=== PATIENT | female | born 1995 | race Caucasian/White ===

== ENCOUNTER 2017-09-03 20:17 | Emergency (ER) | END 2017-09-03 22:39 | disposition home or self-care (01) ==

== ENCOUNTER 2019-04-02 18:51 | Emergency (ER) | payer BC, OTHER ==
[~2019-04-02] VITALS: Ht 152.4 cm; Wt 61.1 kg
[~2019-04-02 18:51] MED LIST: ACET500C5 PO; ALBU8.5H8 INH; CETI10CA PO; DOXY1TAB3 PO; GUAI473L22 PO; IBUP-1542 PO; MECL12.574 PO; METO10TA92 PO
[2019-04-02 18:58] VITALS: Ht 152.4 cm; Wt 61.1 kg
[2019-04-02 20:31] VITALS: BP 130/74; PULSE 79; RESP 16
--- NOTE | 2019-04-02 20:51 | ERD ---
ER Documentation Chief Complaint Chief Complaint vomiting x 1 day, states 10 weeks , denies vb HPI 24-year-old female currently 10 weeks presents for vomiting x1 day. She vomited 3 times. Patient is A0 she states that there is no blood or dark coloration noted. She took Zofran without relief. Denies vaginal bleeding. Denies dysuria. Denies fever. Denies chest pain or shortness of breath. Denies abdominal pain, nausea, vomiting. No other modifying factors noted, no other treatments tried at home. ROS All systems reviewed and are negative except as per history of present illness. Medications Home Meds Active Scripts Meclizine Hcl* (Antivert*) 12.5 Mg Tab, 12.5 MG PO Q8H PRN for nausea or vomiting, #30 TAB Prov:GINNY LEONE DO 04/02/19 Doxylamine/Pyridoxine Hcl (DICLEGIS DR 10-10 MG TABLET) 1 Each Tablet.dr, 1 TAB PO prn PRN for vomiting, #30 TAB take 2 tablets at bedtime on day 1 and 2 if that doesn't help, take 1 tablet in the morning and 2 tablets at bedtime on day 3 if vomiting does not get better on day 4, take 1 tablet in the morning, 1 tablet in the afternoon and 2 tablets at bedtime maximum 4 tablets per day Prov:GINNY LEONE DO 04/02/19 Guaifenesin-Codeine Phosphate* (Guaifenesin* AC Cough Syrup) 473 Ml Liquid, 5 ML PO Q4H PRN for COUGH, #120 ML Prov:BLAINE AKHTAR NP 09/03/17 Albuterol Sulfate* (Proair HFA*) 8.5 Gm Hfa.aer.ad, 2 PUFF INH Q4H PRN for WHEEZING AND SOB, #1 INHALER Prov:BLAINE AKHTAR NP 09/03/17 Ibuprofen* (Motrin*) 600 Mg Tab, 600 MG PO Q6H PRN for PAIN AND OR ELEVATED TEMP, #30 TAB Prov:BLAINE AKHTAR NP 09/03/17 Cetirizine Hcl* (Zyrtec*) 10 Mg Capsule, 10 MG PO DAILY, #30 TAB.CHEW Prov:BLAINE AKHTAR NP 09/03/17 Reported Medications [none] Unknown Strength No Conflict Check 09/03/17 Allergies Allergies: Coded Allergies: No Known Drug Allergy (Verified Allergy, Unknown, 09/03/17) PMhx/Soc Medical and Surgical Hx: pt denies Medical Hx, pt denies Surgical Hx Hx Alcohol Use: No Hx Substance Use: No Hx Tobacco Use: No Smoking Status: Never smoker FmHx Family History: No coronary disease Physical Exam Vitals Vital Signs Date Temp Pulse Resp B/P (MAP) Pulse Ox O2 O2 Flow FiO2 Time Delivery Rate 04/02/19 79 16 130/74 98 Room Air 20:31 (92) 04/02/19 99.1 106 20 142/71 96 18:58 (94) Physical Exam Const: No acute distress Head: Atraumatic Eyes: Normal Conjunctiva ENT: Normal External Ears, Nose and Mouth. Neck: Full range of motion. No meningismus. Resp: Clear to auscultation bilaterally Cardio: Regular rate and rhythm, no murmurs Abd: Soft, non tender, non distended. Normal bowel sounds Skin: No petechiae or rashes Back: No midline or flank tenderness Ext: No cyanosis, or edema Neur: Awake and alert Psych: Normal Mood and Affect Procedures/MDM Medical Decision Making: Differential diagnosis includes but not limited to SBO, hyperemesis gravidarum, electrolyte disorder, pancreatitis, appendicitis, gastritis, gastroenteritis. Patient appeared well on physical exam. Abdominal examination benign, there is low suspicion for acute abdomen. She likely has hyperemesis gravidarum Given mild symptoms it was felt the patient was appropriate for outpatient management. Patient advised to follow-up with [facility] INS[facility] 2 to 3 days. Prescription(s): Patient given prescription for supportive medication(s). Patient advised to follow up with PCP in 1-2 days. Patient advised to return to ED for new or worsening symptoms. Patient stable on discharge from the ED. Disclaimer: Inadvertent spelling and grammatical errors are likely due to EHR/dictation software use and do not reflect on the overall quality of patient care. Also, please note that the electronic time recorded on this note does not necessarily reflect the actual time of the patient encounter. Departure Diagnosis: Primary Impression: Hyperemesis arising during Condition: Fair Patient Instructions: Hyperemesis Gravidarum Referrals: [facility] YOU HAVE RECEIVED A MEDICAL SCREENING EXAM AND THE RESULTS INDICATE THAT YOU DO NOT HAVE A CONDITION THAT REQUIRES URGENT TREATMENT IN THE EMERGENCY DEPARTMENT. FURTHER EVALUATION AND TREATMENT OF YOUR CONDITION CAN WAIT UNTIL YOU ARE SEEN IN YOUR DOCTORS OFFICE WITHIN THE NEXT 1-2 DAYS. IT IS YOUR RESPONSIBILITY TO MAKE AN APPOINTMENT FOR FOLOW-UP CARE. IF YOU HAVE A PRIMARY DOCTOR --you should call your primary doctor and schedule an appointment IF YOU DO NOT HAVE A PRIMARY DOCTOR YOU CAN CALL OUR PHYSICIAN REFERRAL HOTLINE AT IF YOU CAN NOT AFFORD TO SEE A PHYSICIAN YOU CAN CHOSE FROM THE FOLLOWING [facility] [address] [facility]. [facility] [address] [facility] [facility] [address] [facility]. [facility] [address] [facility]. [facility] [address] [facility] [facility]. [address] Additional Instructions: Call your primary care doctor TOMORROW for an appointment during the next 1-2 days.See the doctor sooner or return here if your condition worsens before your appointment time. Follow up with [facility] GINNY LEONE DO Apr 02, 2019 20:51
== END 2019-04-02 21:17 | disposition home or self-care (01) ==
LOC: FTE 18:51
DX: O21.0 Mild hyperemesis gravidarum (principal); Z3A.10 10 weeks gestation of pregnancy
CPT/HCPCS: 99282

== ENCOUNTER 2019-04-23 20:11 | Emergency (ER) | payer BC ==
[~2019-04-23] VITALS: Ht 154.9 cm; Wt 60.0 kg
[2019-04-23 20:27] VITALS: BP 123/90; PULSE 109; RESP 18; Ht 154.9 cm; Wt 60.0 kg
[2019-04-23] MEDS ORDERED: ACETAMINOPHEN 500 MG TAB PO STA (22:14)
[2019-04-23] MEDS ORDERED: SOD CHLORIDE 0.9% 1,000 ML IV ONE (22:30)
[2019-04-23] MEDS ORDERED: METOCLOPRAMIDE 10 MG INJ IV ONE (22:30)
[2019-04-23] MEDS ORDERED: POTASSIUM CHLORIDE (SR) 20 MEQ TAB PO STA (23:51)
== END 2019-04-24 00:27 | disposition home or self-care (01) ==
LOC: FTE 20:11
DX: O21.9 Vomiting of pregnancy, unspecified (principal); R10.2 Pelvic and perineal pain; Z3A.14 14 weeks gestation of pregnancy
CPT/HCPCS: 76805; 80053; 81001; 82150; 83690; 84702; 85025; 86900; 86901; 87086; J2765; J7030; 36415; 96374

== ENCOUNTER 2019-04-24 19:58 | Emergency (ER) | payer BC, MEDICAID ==
[~2019-04-24] VITALS: Ht 154.9 cm; Wt 58.7 kg
[2019-04-24 20:01] VITALS: BP 143/60; PULSE 104; RESP 16; Ht 154.9 cm; Wt 58.7 kg
== END 2019-04-24 20:37 | disposition home or self-care (01) ==
LOC: FTE 19:58
DX: O21.0 Mild hyperemesis gravidarum (principal); Z3A.00 Weeks of gestation of pregnancy not specified
CPT/HCPCS: 99283